=== PATIENT | male | born 1950 | race Two or more races ===

== ENCOUNTER → 2018-12-25 | Emergency (ER) | payer OTHER ==
[~2018-12-25] VITALS: Ht 157.5 cm; Wt 106.1 kg
[~2018-12-25] MED LIST: ACIDO FOLICO; ALTACE5 MG PO; GLIPIZIDE; HUMALOG; HUMULIN N; METFORMIN; NORVASC5 MG; SYNTHROID200 MCG; [UNRECOGNIZED DRUG - OTHER]
== END | disposition home or self-care (01) ==
LOC: ER 00:35 → CPU-OBS 00:55
DX: R00.2 Palpitations (principal)

== ENCOUNTER 2019-01-23 08:25 | Outpatient (CLI) | payer OTHER | END 2019-01-23 10:22 | disposition home or self-care (01) | LOC: RAD 501 08:25 | DX: M54.6 Pain in thoracic spine (principal); M54.5 Low back pain; M53.3 Sacrococcygeal disorders, not elsewhere classified ==

== ENCOUNTER 2021-08-08 06:00 | Day surgery (SDC) | payer OTHER | END 2021-08-08 09:50 | disposition home or self-care (01) | LOC: AMB-ENDOS 06:00 | PROVIDERS: ATTEND Colon & Rectal Surgery | DX: D12.2 Benign neoplasm of ascending colon (principal); D12.3 Benign neoplasm of transverse colon; K64.2 Third degree hemorrhoids ==